=== PATIENT | female | born 1945 | race Caucasian/White ===

== ENCOUNTER 2022-11-13 12:22 | Emergency (ER) | payer MEDICARE, OTHER ==
[~2022-11-13] VITALS: Ht 144.8 cm; Wt 68.1 kg
[2022-11-13 16:10] VITALS: BP 154/73
[2022-11-13] MEDS ORDERED: HYDROcodone-ACET 5/325MG TAB PO ONE (16:30)
[2022-11-13] MEDS ORDERED: TRAM50TA2 PO (16:40)
== END 2022-11-13 16:46 | disposition home or self-care (01) ==
LOC: ER 12:22 → EDBD 12:22 → ER 16:46
DX: S46.091A Other injury of muscle(s) and tendon(s) of the rotator cuff of right shoulder, initial encounter (principal); Z79.899 Other long term (current) drug therapy; W01.0XXA Fall on same level from slipping, tripping and stumbling without subsequent striking against object, initial encounter; Y93.01 Activity, walking, marching and hiking; Y92.89 Other specified places as the place of occurrence of the external cause; Y99.8 Other external cause status
CPT/HCPCS: 73030